=== PATIENT | male | born 1995 | race African-American/Black ===

== ENCOUNTER 2019-05-22 17:46 | Emergency (ER) | payer SELFPAY ==
[2019-05-22] MEDS ORDERED: Penicillin VK TAB* 250 MG PO ONE (18:14)
[2019-05-22] MEDS ORDERED: traMADol TAB* 50 MG PO ONE (18:14)
[2019-05-22] MEDS ORDERED: Ketorolac *IM* INJ* 60 MG/2 ML VIAL IM ONE (18:14)
--- NOTE | 2019-05-22 18:18 | ED ---
Throat Pain/Nasal Congestion - HPI Summary HPI Summary: The patient is a 23 y/o male presenting to [facility] with a chief complaint of multiple toothaches onset last week that subsided but returned and worsened. He reports that he has not seen a dentist for these teeth pains, but he has seen a doctor in [place]. He has taken one pain pill that he states was his own but was the last one he had. Currently, the pain is rated 10/10 in severity. No other PMHx. Nonsmoker, no EtOH, no substance use. Medications reviewed. Allergies noted. - History of Current Complaint Chief Complaint: EDDentalPain Time Seen by Provider: 05/22/19 18:08 Hx Obtained From: Patient Onset/Duration: Still Present Severity: Severe Associated Signs And Symptoms: Positive: Negative Cough: None - Allergies/Home Medications Allergies/Adverse Reactions: Allergies Allergy/AdvReac Type Severity Reaction Status Date / Time No Known Allergies Allergy Verified 05/22/19 17:56 PMH/Surg Hx/FS Hx/Imm Hx Endocrine/Hematology History: Denies: Hx Diabetes Respiratory History: Denies: Hx Asthma Sensory History: Denies: Hx Legally Blind, Hx Deafness Opthamlomology History: Denies: Hx Legally Blind EENT History: Denies: Hx Deafness - Surgical History Surgical History: None Surgery Procedure, Year, and Place: none Infectious Disease History: No Infectious Disease History: Denies: Traveled Outside the in Last 30 Days - Family History Known Family History: Negative: Renal Disease - Social History Alcohol Use: None Hx Substance Use: No Substance Use Type: Reports: None Hx Tobacco Use: No Smoking Status (MU): Never Smoked Tobacco Review of Systems Negative: Fever, Chills Negative: Erythema Positive: Dental Pain. Negative: Sore Throat Negative: Chest Pain Negative: Shortness Of Breath, Cough Negative: Abdominal Pain, Vomiting, Nausea Negative: dysuria, hematuria Negative: Myalgia, Edema Negative: Rash Neurological: Other - Negative: dizziness All Other Systems Reviewed And Are Negative: Yes Physical Exam - Summary Physical Exam Summary: General: Well appearing, no distress HENT: No trismus, No periapical abscesses, Poor dentition, Third molars decayed down to gum line Cardiovascular: Skin is well perfused Pulmonary: No respiratory distress, no tachypnea Abdomen: Non-distended Skin: Warm, pink, dry Psych: Normal affect Neuro: A&Ox3 Triage Information Reviewed: Yes Vital Signs On Initial Exam: Initial Vitals Temp Pulse Resp BP Pulse Ox 100 F 89 18 102/80 95 05/22/19 17:51 05/22/19 17:51 05/22/19 17:51 05/22/19 17:51 05/22/19 17:51 Vital Signs Reviewed: Yes Procedures - Sedation Patient Received Moderate/Deep Sedation with Procedure: No Diagnostics - Vital Signs Vital Signs Temp Pulse Resp BP Pulse Ox 05/22/19 17:51 100 F 89 18 102/80 95 - Laboratory Lab Statement: Any lab studies that have been ordered have been reviewed, and results considered in the medical decision making process. EENT Course/Dx - Course Course Of Treatment: Patient is a 23 y/o male with multiple toothaches onset last week that subsided but returned and worsened without treatment by a dentist. Physical exam reveals third molars decayed down to the gum line, with overall poor dentition but no trismus or periapical abscesses. Patient administered Tramadol, Toradol, and Penicillin. He is advised that he needs dental work with a dentist. He will be given a referral to a dentist and PCP for follow up. Rx for Penicillin and Tramdol. Patient understands and agrees with plan. - Diagnoses Provider Diagnoses: Pain, dental Discharge ED - Sign-Out/Discharge Documenting (check all that apply): Patient Departure - Patient will be discharged home. - Discharge Plan Condition: Stable Disposition: HOME Prescriptions: Ibuprofen TAB* [Motrin TAB* 400 MG] 400 mg PO Q6H PRN #30 tab PRN Reason: Pain - Severe Penicillin VK 500 MG TAB(NF) [Penicillin VK 500 mg Tab] 500 mg PO QID #28 tab traMADol TAB* [Ultram*] 50 mg PO Q6HR PRN #10 tab MDD 4 PRN Reason: Pain - Severe Patient Education Materials: Toothache (ED) Referrals: [facility] [Outside] - 3 Days Additional Instructions: Please take medications as prescribed. Follow up with a dentist in 2-3 days. Return to the emergency department for any new or worsening symptoms. - Attestation Statements Document Initiated by Scribe: Yes Documenting Scribe: Jennyfer Holliday Provider For Whom Pita is Documenting (Include Credential): MD Pita Hayden Attestation: Jennyfer Charles scribed for Dr. Martín Bach MD on 05/22/19 at 1836. Status of Scribe Document: Ready
[2019-05-22] MEDS ORDERED: Acetaminophen TAB* 325 MG PO ONE (18:52)
[2019-05-22 19:05] VITALS: BP 129/77
== END 2019-05-22 19:04 | disposition home or self-care (01) ==
LOC: ED 17:46
DX: K08.89 Other specified disorders of teeth and supporting structures (principal); K02.9 Dental caries, unspecified
CPT/HCPCS: 96372; 99282; A9270-GY; J1885